=== PATIENT | female | born 1960 | race Caucasian/White ===

== ENCOUNTER 2018-08-09 11:44 | Day surgery (SDC) | payer OTHER ==
[~2018-08-09] VITALS: Ht 177.8 cm; Wt 88.2 kg
[~2018-08-09 11:44] MED LIST: B Complex #11 EACH PO; LO-DOSE ASPIRIN81 MG PO
== END 2018-08-09 14:03 | disposition home or self-care (01) ==
LOC: ORSCSDS 11:44
PROVIDERS: Surgery
PROC: 0DJD8ZZ Inspection of Lower Intestinal Tract, Via Natural or Artificial Opening Endoscopic (ICD-10-PCS; principal; 2018-08-09 13:00)
DX: Z12.11 Encounter for screening for malignant neoplasm of colon (principal); Z86.010 Personal history of colon polyps; E78.5 Hyperlipidemia, unspecified; R73.9 Hyperglycemia, unspecified; Z87.891 Personal history of nicotine dependence; Z79.82 Long term (current) use of aspirin; Z79.899 Other long term (current) drug therapy
CPT/HCPCS: J2704; J7120

== ENCOUNTER → 2020-10-06 | Outpatient (CLI) | payer OTHER | END | disposition home or self-care (01) | LOC: LAB 06:25 → LAB SHORT 06:25 | DX: K21.9 Gastro-esophageal reflux disease without esophagitis (principal) | CPT/HCPCS: 87338 ==

== ENCOUNTER → 2020-11-27 | Outpatient (CLI) | payer OTHER ==
[2020-12-01 07:09] LABS: HSV-1 DNA Negative (Negative); HSV-2 DNA Positive (Negative)
== END ==
LOC: LAB SHORT 14:00 → LAB 14:00
PROVIDERS: Internal Medicine
DX: B00.9 Herpesviral infection, unspecified (principal)
CPT/HCPCS: 87529